=== PATIENT | male | born 1985 | race Caucasian/White ===

== ENCOUNTER 2018-05-24 15:29 | Emergency (ER) | payer OTHER ==
[2018-05-24 15:38] VITALS: BP 156/78; PULSE 79; TEMP 98; BMI 33.0
--- NOTE | 2018-05-24 16:02 | PDOC ---
History of Present Illness - General Chief Complaint: Rash Stated Complaint: RASH ON LEG Time Seen by Provider: 05/24/18 15:46 History Source: Patient Exam Limitations: Clinical Condition - History of Present Illness Initial Comments: 05/24/18 15:57 Patient with no significant past medical history present with complain of lesions to the shaft and gland of penis which he saw his PCP and had all STD test done which according to the patient every thing was negative .patient reported he was prescribed Lotrisone topical cream which is making her symptoms worse and now having swelling over the lesions with increased redness. Denies any pain no discharge. Patient is sexually active with one partner. Denies any pain or discomfort with urination. Patient denies any urinary symptoms Timing/Duration: 1 week Past History - Past Medical History Allergies/Adverse Reactions: Allergies Allergy/AdvReac Type Severity Reaction Status Date / Time Penicillins Allergy Intermediate Hives Verified 05/24/18 15:38 pork Allergy Unknown Hives Uncoded 05/24/18 15:38 Home Medications: Ambulatory Orders Doxycycline Hyclate 100 mg PO BID 7 Days #14 capsule 05/24/18 Fluconazole [Diflucan] 150 mg PO ONCE #2 tablet 05/24/18 Ketoconazole 2% Cream [Nizoral 2% Cream -] 1 applic TP BID 7 Days #1 cream 05/24 - Suicide/Smoking/Psychosocial Hx Smoking Status: Yes Smoking History: Never smoked Have you smoked in the past 12 months: No Number of Cigarettes Smoked Daily: 1 Information on smoking cessation initiated: No 'Breaking Loose' booklet given: 06/09/13 Hx Alcohol Use: No Drug/Substance Use Hx: No Review of Systems - Review of Systems Able to Perform ROS?: Yes Is the patient limited I[place]ian proficient: No Constitutional: No: Chills, Diaphoresis, Fever, Loss of Appetite, Malaise, Night Sweats, Weakness, Weight Stable, Unintentional Wgt. Loss, Unexplained wgt Loss, Other HEENTM: No: Eye Pain, Blurred Vision, Tearing, Recent change in vision, Double Vision, Cataracts, Ear Pain, Ocular Prothesis, Ear Discharge, Nose Pain, Nose Congestion, Tinnitus, Nose Bleeding, Hearing Loss, Throat Pain, Throat Swelling , Mouth Pain, Dental Problems, Difficulty Swallowing, Mouth Swelling, Other Respiratory: No: Cough, Orthopnea, Shortness of Breath, SOB with Exertion, SOB at Rest, Stridor, Wheezing, Productive cough, Hemoptysis, Other Cardiac (ROS): No: Chest Pain, Edema, Irregular Heart Rate, Lightheadedness, Palpitations, Syncope, Chest Tightness, Other ABD/GI: No: Abdominal Distended, Abd. Pain w/ defecation, Blood Streaked Bowels , Constipated, Diarrhea, Difficulty Swallowing, Nausea, Poor Appetite, Poor Fluid Intake, Rectal Bleeding, Vomiting, Indigestion, Abdominal cramping, Tarry Stools, Other : Yes: Lesions (shaft and gland of penis). No: Dysuria, Discharge, Frequency , Flank Pain, Hematuria, Pain, Testicular Mass, Testicular Swelling, Testicular Pain All Other Systems: Reviewed and Negative *Physical Exam - Vital Signs Last Vital Signs Temp Pulse Resp BP Pulse Ox 98.0 F 79 16 156/78 100 05/24/18 15:36 05/24/18 15:36 05/24/18 15:36 05/24/18 15:36 05/24/18 15:36 - Physical Exam Comments: 05/24/18 16:00 GENERAL: Well developed, well nourished. Awake and alert. No acute distress. HEENT: Normocephalic, atraumatic. PERRLA, EOMI. No conjunctival pallor. Sclera are non- icteric. Moist mucous membranes. Oropharynx is clear. NECK: Supple. Full ROM. No JVD. Carotid pulses 2+ and symmetric, without bruits. No thyromegaly. No lymphadenopathy. CARDIOVASCULAR: Regular rate and rhythm. No murmurs, rubs, or gallops. Distal pulses are 2+ and symmetric. PULMONARY: No evidence of respiratory distress. Lungs clear to auscultation bilaterally. No wheezing, rales or rhonchi. ABDOMINAL: Soft. Non-tender. Non-distended. No rebound or guarding. No organomegaly. Normoactive bowel sounds. MUSCULOSKELETAL Normal range of motion at all joints. No bony deformities or tenderness. No CVA tenderness. EXTREMITIES: No cyanosis. No clubbing. No edema. No calf tenderness. SKIN: Multiple erythematous lesions to gland and shaft of penis with multiple small erupted erythematous lesions NEUROLOGICAL: Alert, awake, appropriate. Cranial nerves 2-12 intact. No deficits to light touch and temperature in face, upper extremities and lower extremities. No motor deficits in the in face, upper extremities and lower extremities. Normoreflexic in the upper and lower extremities. Normal speech. Toes are down- going bilaterally. Gait is normal without ataxia. PSYCHIATRIC: Cooperative. Good eye contact. Appropriate mood and affect. General Appearance: Yes: Nourished, Appropriately Dressed. No: Apparent Distress Medical Decision Making - Medical Decision Making 05/24/18 16:04 Patient with no significant past medical history presenting with complain 1 week history of penile lesions which is worsening with Lotrisone topical cream. all STD tests done 4 days ago and negative according to patient. Patient will be treated with an outpatient basis for candidiasis with a week course of doxycycline with dermatology follow-up *DC/Admit/Observation/Transfer Diagnosis at time of Disposition: Balanitis, Rash of penis - Discharge Dispostion Disposition: HOME Condition at time of disposition: Stable Decision to Admit order: No - Prescriptions Prescriptions: Doxycycline Hyclate 100 mg PO BID 7 Days #14 capsule Fluconazole [Diflucan] 150 mg PO ONCE #2 tablet Ketoconazole 2% Cream [Nizoral 2% Cream -] 1 applic TP BID 7 Days #1 cream - Referrals Referrals: Dustin Reyes MD [Primary Care Provider] - Moy Lambert MD [Non Staff, Medical] - - Patient Instructions Additional Instructions: Take medications as prescribed and follow-up with dermatology as soon as possible - Post Discharge Activity
== END 2018-05-24 16:21 | disposition home or self-care (01) ==
LOC: JERFT 15:29
DX: B37.42 Candidal balanitis (principal)
CPT/HCPCS: 99281-25